=== PATIENT | male | born 1950 | race Caucasian/White ===

== ENCOUNTER → 2019-01-04 12:20 | Outpatient (CLI) | payer OTHER, SELFPAY ==
--- NOTE | 2019-01-04 12:29 | RAD_ITS ---
STUDY: X-RAY - LUMBAR SPINE REASON FOR EXAM: Male, 68 years old. Lower back pain. TECHNIQUE: 5 view(s) of the lumbar spine were obtained. COMPARISON: None FINDINGS: Normal lumbar lordosis. There is no substantial scoliosis. There is a normal alignment of the vertebrae. Normal vertebral bodies and endplates. Normal disc space heights. There is no evidence of acute fracture or loss of vertebral axial height. There is no demonstrated spondylolysis of the pars interarticulares. There are degenerative changes of the facet joints. There is diffusely dilated small bowel loops and colon. Question ileus. Vascular calcifications are seen in the pelvis. There are bilateral hip replacements. RAD/L/S Spine Min 4 Views IMPRESSION: Mild degenerative changes of the lumbar spine without acute abnormality. Electronically Signed: Micha Fontana DO at 20:48 EST Tel [phone], Service support ,
== END ==
PROVIDERS: Family Provider Internal Medicine; PCP Internal Medicine; Visit Provider Internal Medicine
DX: M54.5 Low back pain (principal)
CPT/HCPCS: 72110

== ENCOUNTER 2023-09-22 12:30 | Outpatient (RCR) | payer MEDICARE, OTHER, SELFPAY ==
--- NOTE | 2023-09-08 11:40 | HP.PTEVAL ---
Patient's Visit Information Visit Information Visit Information: ANTHONY CARRASQUILLO is a 73 year old M referred to Physical Therapy by Dr. Clarita Bah DO with a diagnosis of L HS strain. Date of Evaluation: 09/01/23 Physical Therapist: Gene Brandt DPT Visit Plan Frequency: 1x/Week Duration: 6 Weeks Plan: Start with REIL, HS stretching, nerve flossing. Progress as tolerated Subjective Subjective: Pt. is here today for his initial evaluation with L HS strain. Pt. reports having increased symptoms for a few weeks now after walking up a hill to a foot ball game. Pt. reports his pain goes from his posterior thigh to his foot, not always, is fairly consistent. He has been trying some stretching, but not having much relief. He has not had any imaging done at this point in time. Pt. reports some N/T in his leg as well. He has been doing HS stretching which has not helped much. He is hopeful to reduce symptoms in order to get back to all recreational activities and walking without limitations. Pain L posterior leg: Pain Intensity (Out of 10): 3 Pain Intensity Range: 1 and 6 Objective Objective: POSTURE: Pt. has decent posture in stance. Pt. has no lateral shift noted. Pt. has slight FH posture and slight reduced lumbar lordosis. PALPATION: Pt. has some tenderness along L HS. He has some tenderness along lumbar spine, hypomobility noted in same region as well. NEURO: normal sensation and DTR of BLEs. Pt. is able rise on heels and toes without issues. ROM: LUMBAR SPINE: flexion min loss increase NW, extension mod/max loss mild decrease NB, SB min loss NE, rotation min/mod loss bilat NE. Pt. has tight HS bilat, tight hip flexors bilat. Fairly normal hip ROM bilaterally. Movement of his spine caused increase in symptoms. MMT: Pt. has fairly normal LE strength, poor+ core strength. No pain with MMT. GAIT: Fairly normal gait pattern. Pt. did have some increased symptoms with walking. STAIRS: Normal with reciprocal pattern. Special Tests L/S Slump test left side: Positive L/S Slump test right side: Negative L/S Left Straight Leg Raise: Negative L/S Right Straight Leg Raise: Negative Lumbar Standing: Flexion - Mechanical Response: No effect Lumbar Standing: Flexion - Symptoms During Testing: Increases Lumbar Standing: Flexion - Symptoms After Testing: No worse Lumbar Standing: Extension - Mechanical Response: No effect Lumbar Standing: Extension - Symptoms During Testing: Increases Lumbar Standing: Extension - Symptoms After Testing: No worse Lumbar Standing: Right Side Glides - Mechanical Response: No effect Lumbar Standing: Right Side [place] - Symptoms During Testing: No effect Lumbar Standing: Right Side [place] - Symptoms After Testing: No effect Lumbar Standing: Left Side [place] - Mechanical Response: No effect Lumbar Standing: Left Side [place] - Symptoms After Testing: No effect Lumbar Lying: Flexion - Mechanical Response: No effect Lumbar Lying: Flexion - Symptoms During Testing: No effect Lumbar Lying: Flexion - Symptoms After Testing: No effect Lumbar Lying: Extension - Mechanical Response: No effect Lumbar Lying: Extension - Symptoms During Testing: Increases Lumbar Lying: Extension - Symptoms After Testing: No worse L Hip Scour: Negative L Hip NEHEMIAH - Intraarticular Pathology: Negative L Hip FADDIR - Labrum: Negative L Hip Bruno - IT Band: Negative Balance/Special Test Scores Lower Extremity Functional Score: 36 Goals Goal 1:: LTG: Pt. to be I with HEP. Goal Time Frame: 4-6 Weeks Goal 2:: STG: Pt. to have reduced posterior thigh pain to 0-2/10. Goal Time Frame: 2 Weeks Goal 3:: STG: Pt. to have full lumbar and HS ROM without increase in symptoms. Goal Time Frame: 2-4 Weeks Goal 4:: LTG: Pt. to be able to walk unlimited distances without increase in leg or low back symptoms. Goal Time Frame: 4-6 Weeks Rehabilitation Potential Physical Therapy Diagnosis: Pt. has symptoms with distal LLE pain. Pt. has some signs suggesting lumbar radiculopathy with directional preference for extension. Pt. did have some mild reduction in symptoms after extension exercises. I will also work on HS stretching and lumbar mobility. Rehabilitation Potential: Excellent Anticipated Interventions Patient/Client Instruction: Educate patient on: Condition, Plan of Care, Risk Factors and Benefits of Fitness Program For the Purpose of:: To improve decision making, To facilitate caregiver knowledge, To improve self management, To prevent re-injury and To improve ability to perform tasks related to life management Therapeutic Exercise to Include: Strength training, Power training, Passive ROM, Active ROM, Dynamic Lumbar Stabilization and Scapular Strength/Stabilization For the Purpose of:: To decrease pain, To decrease swelling/inflammation, To increase ROM, To increase oxygenation perfusion, To improve gait and locomotor functions, To improve health of tissue, To decrease soft tissue restriction and To increase flexibility/ROM Manual Therapy Techniques to Include: Mobilization, Functional dry needling and Soft tissue mobilization For the Purpose of:: To decrease pain, To decrease swelling/inflammation, To increase ROM, To improve nutrient delivery to tissue, To increase oxygenation perfusion and To improve muscle performance and motor function Text: Thank you for the opportunity to evaluate your patient. For Medicare and Medicare HMO plans, please review the plan of care and approve it. It will need to be FAXED BACK to us at [phone] for Medicare purposes. For Medicare only, by signing this I certify the plan of care. Please let me know if there are questions or concerns regarding this plan of care. Physician Signature: Date:
--- NOTE | 2023-09-27 15:58 | HP.PTDCSUM ---
Discharge Summary D/C summary: It has been my pleasure to treat ANTHONY CARRASQUILLO referred by Dr. Clarita Bah DO, with the diagnosis of L HS strain for a total of 3 visit(s). Discharge Date: 09/22/23 Please see the following information for a summary of their discharge status. Subjective Subjective: Pt. reports overall doing much better since doing his exercises. Pt. reports being 95% better. Pain L posterior leg: Pain Intensity (Out of 10): 0 Overall Improvement % Improvement: 95 Objective Objective/Function: Pt. is overall doing well. He is back to all of his activities with minimal issues. He has occasional HS symptoms, but very mild and infrequently. He is still stiff into extension, but has progressing. He is no longer having his HS symptoms. I want him to continue to work on REIL and the core stability exercises we have gone over. Goals Goal 1:: LTG: Pt. to be I with HEP. Goal Progress: Goal Met Goal 2:: STG: Pt. to have reduced posterior thigh pain to 0-2/10. Goal Progress: Goal Met Goal 3:: STG: Pt. to have full lumbar and HS ROM without increase in symptoms. Goal Progress: Goal Met Goal 4:: LTG: Pt. to be able to walk unlimited distances without increase in leg or low back symptoms. Goal Progress: Goal Met Plan Plan: Pt. to be DC from PT at this point in time. D/C Information Discharge Comments: Pt. is overall doing much better. Pt. was treated with lumbar REIL and core stability exercises. pt. will be DC from PT at this point in time as he is longer having symptoms and is back to all activities without limitations. Pt. is to continue with his HEP to maintain the reduction. pt. consents. d/c sentence: If there are questions or concerns regarding this patient's physical therapy, please feel free to call me at [phone]. Thank you for the referral of this patient. Sincerely, Gene Le Sipos, DPT Balance/Gait/Functional tests Balance/Special Test Scores Lower Extremity Functional Score: 71 Improvement % Improvement: 95
== END 2023-09-22 19:00 | disposition home or self-care (01) ==
LOC: PT 12:30
PROVIDERS: PCP Internal Medicine; Visit Provider Internal Medicine
DX: S76.199 Other specified injury of unspecified quadriceps muscle, fascia and tendon (principal)
CPT/HCPCS: 97110; 97161

== ENCOUNTER → 2024-02-22 | Outpatient (CLI) | payer MEDICARE, OTHER, SELFPAY ==
--- NOTE | 2024-02-22 07:52 | CT_ITS ---
STUDY: LOW DOSE CT LUNG CANCER SCREENING REASON FOR EXAM: Male, 73 years old. Cigar Smoker. Patient smoked half a pack per day for 50 years. RADIATION DOSAGE (If Supplied By Facility): CTDIvol = ( 3.02 ) mGy, DLP = ( 131.34 ) mGycm TECHNIQUE: No contrast was administered. Low dose technique was utilized (average mAS-38 and kVp 120). 1.25 mm axial source images with a slice interval of 1.25-mm were reconstructed in lung windows. 2.5 mm axial source images with a slice interval of 2.5-mm were reconstructed in lung windows. 5.0 mm axial source images with a slice interval of 5.0-mm were reconstructed in soft tissue windows. COMPARISON: None. NODULES: No suspicious nodules are seen. Emphysema: Hyperinflation. Emphysematous changes worse in the upper lobes with the cystic formation. Mild scarring in the superior segment of the right lower lobe. Endobronchial lesion: None Aorta: Atherosclerotic plaque formation of the aortic arch. CORONARY ARTERIES: Coronary artery calcification is seen. Heart: Unremarkable Pulmonary artery: Unremarkable Mediastinal nodes: Small mediastinal lymph nodes. Other chest and abdominal findings: CT/Low Dose CT Lung Screening IMPRESSION: Lung-RADS category 2 - Continue annual screening with LDCT in 12 months. IMPORTANT NOTES FOR USE: ACR Lung-RADS Version 1.1 Assessment Categories Release Date: 2018 Category: Coded 0-4 bases on nodule(s) with highest degree of suspicion. Negative screen is defined as categories 1 and 2; a positive screen is defined as categories 3 and 4. Category 3 and 4A nodules that are unchanged on interval CT should be coded as category 2, and individuals returned to screening in 12 months. Category 4X: Category 3 or 4 nodules with additional imaging findings that increase the suspicion of lung cancer, such as spiculation, GGN that doubles in size in 1 year, enlarged lymph notes, etc. Category Modifiers: S (significant finding unrelated to lung cancer) Electronically Signed: Dex Mckeon MD at 15:26 EDT ,
== END | disposition home or self-care (01) ==
LOC: CT 07:48
PROVIDERS: PCP Internal Medicine; Referring Provider Internal Medicine; Visit Provider Internal Medicine
DX: F17.210 Nicotine dependence, cigarettes, uncomplicated (principal)
CPT/HCPCS: 71271

== ENCOUNTER 2024-09-27 08:26 | Day surgery (SDC) | payer MEDICARE, OTHER, SELFPAY ==
[2024-09-27] VITALS (7 sets, daily range): BP systolic 109–127; BP diastolic 59–80; PULSE 54–65; RESP 14–16; TEMP 36–36.6; O2SAT 57–98; BMI 29.6
== END 2024-09-27 10:59 | disposition home or self-care (01) ==
LOC: EN 08:28 → AC 08:29
PROVIDERS: PCP Internal Medicine; Referring Provider Internal Medicine Gastroenterology; Visit Provider Internal Medicine Gastroenterology
PROC: 0DJD8ZZ Inspection of Lower Intestinal Tract, Via Natural or Artificial Opening Endoscopic (ICD-10-PCS; CPT 45378; principal; 2024-09-27 09:25)
DX: Z12.11 Encounter for screening for malignant neoplasm of colon (principal); K57.30 Diverticulosis of large intestine without perforation or abscess without bleeding; Z87.891 Personal history of nicotine dependence; I25.10 Atherosclerotic heart disease of native coronary artery without angina pectoris; I10 Essential (primary) hypertension; K63.5 Polyp of colon; E78.00 Pure hypercholesterolemia, unspecified; E03.9 Hypothyroidism, unspecified; Z79.899 Other long term (current) drug therapy; Z79.890 Hormone replacement therapy; Z96.649 Presence of unspecified artificial hip joint
CPT/HCPCS: 45385; 45380; 88305; A4216; J2405

== ENCOUNTER → 2025-02-15 | Outpatient (CLI) | payer MEDICARE, OTHER, SELFPAY ==
[2025-02-15 13:12] LABS: PSA,Total - Annual Screen 0.29 ng/mL (0.02-4.00)
== END | disposition home or self-care (01) ==
LOC: LAB 11:57
PROVIDERS: PCP Internal Medicine; Referring Provider Nurse Practitioner; Visit Provider Nurse Practitioner
DX: Z12.5 Encounter for screening for malignant neoplasm of prostate (principal)
CPT/HCPCS: 36415; 84153; G0103

== ENCOUNTER → 2025-03-07 | Outpatient (CLI) | payer MEDICARE, OTHER, SELFPAY ==
--- NOTE | 2025-03-07 14:25 | CT_ITS ---
PROCEDURE: CT ABD/PELVIS W/WO CONTRAST 03/07/2025 REASON FOR EXAM: GROSS HEMATURIA TECHNIQUE: Abdomen and pelvis CT with intravenous contrast. Coronal and Sagittal reconstruction series were provided. PATIENT PREPARATION: Per protocol ORAL CONTRAST TYPE: None. CONTRAST: Isovue-300 VOLUME: 95 mL One or more dose reduction techniques were used (e.g., Automated exposure control, adjustment of the mA and/or kV according to patient size, use of iterative reconstruction technique. RADIATION DOSE SUMMARY: CTDlvol: 26 mGy DLP: 4190.1 mGycm COMPARISON: None FINDINGS: Lung bases: Unremarkable Liver: Tiny subcentimeter cysts are seen in the left lobe of the liver as well as the medial aspect of the right lobe of the liver superiorly. 1 cm cyst is seen in the anterior aspect of the right lobe of the liver anteriorly as well as in the midportion. Gallbladder: Unremarkable Spleen: Normal size. Pancreas: Normal size without evidence of mass surrounding inflammation or ductal dilation. Adrenals: Unremarkable Kidneys: Nonspecific bilateral perinephric stranding. Small left parapelvic renal cysts. No hydronephrosis. Bladder: The bladder is not completely distended. Diffuse bladder wall thickening. Limited evaluation due to the beam hardening artifacts caused by bilateral hip replacements. Central prostatic calcifications. Bowel: Colonic diverticulosis without diverticulitis. Appendix: The appendix is not identified. There is no inflammatory process identified in the right lower quadrant to suggest appendicitis. Lymph nodes: Unremarkable Vasculature: Mild diffuse atherosclerotic calcifications of the abdominal aorta and the major visceral branches are noted. Peritoneum / Retroperitoneum: Unremarkable Bones: Degenerative changes of the spine. Status post bilateral hip replacements. CT/CT Abd/Pelvis W/WO Contrast IMPRESSION: Scattered hepatic cysts. Mild degree of diffuse bladder wall thickening although the bladder is not comp letely distended. Multiple beam hardening artifacts from the bilateral hip replacements causing limited visualization of the pelvic structures. Central prostatic calcification. Sigmoid diverticulosis. Left parapelvic renal cysts. Reading Location: [place] [id number]
== END | disposition home or self-care (01) ==
PROVIDERS: PCP Internal Medicine; Referring Provider Nurse Practitioner; Visit Provider Nurse Practitioner
DX: R31.0 Gross hematuria (principal)
CPT/HCPCS: 74178; Q9967

== ENCOUNTER 2025-03-30 07:02 | Day surgery (SDC) | payer MEDICARE, OTHER, SELFPAY ==
--- NOTE | 2025-03-28 08:43 | EKG12_ITS ---
Test Reason : PREOP Blood Pressure : */* mmHG Vent. Rate : 61 BPM Atrial Rate : 61 BPM P-R Int : 168 ms QRS Dur : 108 ms QT Int : 442 ms P-R-T Axes : 97 84 61 degrees QTcB Int : 444 ms Normal sinus rhythm Junctional ST depression, probably normal Borderline ECG Confirmed by Bruno Hood ([id number]), editor at large DYLAN RIZO ([id number]) on 03/30/2025 12:12:14 PM Referred By: Jaya Pizano Confirmed By: Bruno Hood
[2025-03-28 09:49] LABS: Hematocrit 40.1 % (40-54); Hemoglobin 14.1 g/dL (13.0-16.5); Mean Corp Hgb Conc 35.2 g/dL (32-36); Mean Corpuscular Hgb 32.4 pg (27.0-32.0); Mean Corpuscular Volume 92.2 fL (80-94); Mean Platelet Vol. 9.1 fl (6.2-12.0); Platelet Count 320 K/mm3 (150-450); RBC Distribution Width CV 13.4 % (11.6-14.6); RBC Distribution Width SD 45.8 fl (35.1-43.9); Red Blood Count 4.35 M/mm3 (4.6-6.2); White Blood Count 9.6 K/mm3 (4.4-11.0)
[2025-03-28 10:27] LABS: Anion Gap 9 (5-15); BUN 16 mg/dL (4-19); BUN/Creat Ratio 22.3 RATIO (10-20); Calcium,Total 8.8 mg/dL (7.6-11.0); Carbon Dioxide 25.9 mmol/L (21.0-32.0); Chloride 101 mmol/L (98-108); Creatinine, Serum 0.73 mg/dL (0.70-1.20); EST Glomerular Filtration Rate 97 (>60); Glucose 108 mg/dL (70-99); Sodium Level 135 mmol/L (133-145)
--- NOTE | 2025-03-29 14:28 | PAT.ANESEVAL ---
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 When Was Last Pacemaker Check QUESTION #4 FULL TEXT: You/Your Family Experience fever (hyperthermia) with Anesthesia Last Oral Intake Last Oral intake: Last Oral Intake NPO since Meds taken in AM with sips of water? Meds patient instructed to take am of surgery PONV PONV - phlebotomist medical lab assistant: PONV - phlebotomist medical lab assistant Female No 03/23/25 10:56 HX of Motion Sickness No 03/23/25 10:56 HX of N/V After Surgery No 03/23/25 10:56 Non-Smoker Yes 03/23/25 10:56 Duration of Surgery greater Yes 03/23/25 10:56 than 60 minutes Number of Risk Factors 2 03/23/25 10:56 PONV Score Moderate Risk 03/23/25 10:56 Height & Weight Height & Weight: Anesthesia: Height & Weight Height 6 ft 03/29/25 09:21 Weight: 99.337 kg 03/29/25 09:21 Respiratory Assessment Respiratory Assessment - phlebotomist medical lab assistant: Respiratory Tract Infection Hx - phlebotomist medical lab assistant Hx Respiratory Tract Infection No 03/23/25 10:56 STOP Sleep Apnea STOP Sleep Apnea - phlebotomist medical lab assistant: STOP Sleep Apnea - phlebotomist medical lab assistant Hx Hypertension Yes 03/23/25 10:56 Hx Sleep Apnea No 03/23/25 10:56 CPAP BIPAP Do you snore loudly (louder No 03/23/25 10:56 than talking or can be heard Do you often feel tired/ No 03/23/25 10:56 fatigued/ sleepy during daytime? Has anyone observed you stop No 03/23/25 10:56 breathing during sleep? STOP Results Negative 03/23/25 10:56 QUESTION #5 FULL TEXT : Do you snore loudly (louder than talking or can be heard through closed doors)? 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 Specify any problems Hx of Preganancy in last 3 N/A 03/23/25 10:56 Months Nurse Filling Out Transfusion EHGLADE 03/23/25 10:56 & Questions: Date: 03/23/25 03/23/25 10:56 Time: 11:00 03/23/25 10:56 Patient unable to answer at this time (ie. confused, unrespo /Reproduction History /Reproductive History - phlebotomist medical lab assistant: /Reproductive Hx- phlebotomist medical lab assistant Hx Now Gestational Age (in weeks): EDC: Hx Hx Para Hx Section SAB Active Medications Active Medications: Current Medications Generic Name Dose Route Start Last Admin Trade Name Freq PRN Reason Stop Dose Admin Mitomycin 40 mg/ N/A 40 mls @ 2,400 mls/hr 03/30/25 09:10 INSTILLAT 03/30/25 09:11 X1 ONE Cefazolin Sodium 2 gm/ Sodium 110 mls @ 150 mls/hr 03/30/25 09:10 Chloride IV 03/30/25 09:53 INTRAOP ONE PFSH Medical History (Updated 03/23/25 @ 11:08 by Martina Charles) Bladder disease Prostate disease Dietary restriction Wears partial dentures Wears glasses Alcohol use Marijuana use Thyroid disease Vitiligo High cholesterol Restless legs Back pain Former smoker History of echocardiogram History of stress test Leg cramps Hypertension 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 Hyperlipidemia Essential (primary) hypertension CAD (coronary artery disease) Hypothyroid Home Medications ?Medication ?Instructions ?Recorded ?Last Taken ?Type atorvastatin 80 mg tablet (Lipitor) 80 mg PO QHS 08/11/24 Unknown History cholecalciferol (vitamin D3) 50 50 mcg PO QDAY 08/11/24 Unknown History mcg (2,000 unit) capsule levothyroxine 112 mcg tablet 112 mcg PO QDAY 08/11/24 Unknown History (Synthroid) lisinopril 10 mg tablet 10 mg PO BID 08/11/24 Unknown History Allergy/AdvReac Type Severity Reaction Status Date / Time No Known Allergies Allergy Verified 03/23/25 10:54 Family History (Updated 08/11/24 @ 14:54 by Ca Candelario) Uncle Colon cancer Brother Cancer Surgical History History of cardiac catheterization History of total hip replacement Social History (Updated 08/11/24 @ 14:58 by Ca Candelario) household members: spouse current occupational status: retired current occupation: Retired [employer] Smoking Status: Former smoker alcohol intake: current alcohol intake frequency: 0-2 drinks per day Alcohol type: beer and wine substance use type: does not use Audit: Pertinent Findings Pertinent Findings EKG Perinent findings: 03/28/2025. Normal sinus rhythm. Junctional ST depression, probably normal. Compared to EKG in [address] elevation in anterior leads. Recommendation Anesthesia Recommendation Anesthesia recommendation: OPTIMIZED for anesthesia
[2025-03-30] VITALS (12 sets, daily range): BP systolic 101–145; BP diastolic 50–79; PULSE 74–83; RESP 16–18; TEMP 36.3–37.1; O2SAT 93–100; BMI 28.1
[2025-03-30] MEDS: Lactated Ringers 1,000 ML 15 ML IV (07:51)
--- NOTE | 2025-03-30 08:48 | PCM.HP.STD ---
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 Hyperlipidemia Essential (primary) hypertension CAD (coronary artery disease) Hypothyroid Home Medications ?Medication ?Instructions ?Recorded ?Last Taken ?Type atorvastatin 80 mg tablet (Lipitor) 80 mg PO QHS 08/11/24 Unknown History cholecalciferol (vitamin D3) 50 50 mcg PO QDAY 08/11/24 Unknown History mcg (2,000 unit) capsule levothyroxine 112 mcg tablet 112 mcg PO QDAY 08/11/24 Unknown History (Synthroid) lisinopril 10 mg tablet 10 mg PO BID 08/11/24 03/30/25 06:00 History tamsulosin 0.4 mg capsule 0.4 mg PO QHS 03/30/25 03/29/25 23:00 History Allergy/AdvReac Type Severity Reaction Status Date / Time No Known Allergies Allergy Verified 03/30/25 07:44 Family History (Updated 08/11/24 @ 14:54 by Ca Candelario) Uncle Colon cancer Brother Cancer Surgical History History of cardiac catheterization History of total hip replacement Social History (Updated 08/11/24 @ 14:58 by Ca Candelario) household members: spouse current occupational status: retired current occupation: Retired [email or web address] Smoking Status: Former smoker alcohol intake: current alcohol intake frequency: 0-2 drinks per day Alcohol type: beer and wine substance use type: does not use Vital Signs Vital Signs Vital Signs: 03/30/25 07:46 03/30/25 07:46 Temperature 97.8 F Temperature Source Temporal Pulse Rate 74 Respiratory Rate 18 Respiratory Pattern Normal Blood Pressure 101/79 Blood Pressure Mean 86 Blood Pressure Source Monitor Blood Pressure Position Sitting Blood Pressure Location Left Arm Pulse Ox 100 Oxygen Delivery Method Room Air Weight Weight: 96.8 kg Body Mass Index (BMI) 28.1 Results Lab / Micro Data 03/28/25 09:06 03/28/25 09:06
--- NOTE | 2025-03-30 09:10 | BLA_PTH ---
PATIENT: ANTHONY CARRASQUILLO LOC: [facility] [place] U#:[id number] AGE/SX: 74/M ROOM: RE03/30/[address]: Dr. Jaya Pizano MD : [id number] BED: DIS: 03/30/2025 SPEC #: [id number] RECD: 03/30/25 13:25 STATUS: ANDREW RERadha #: [id number] ALEJANDRO: 03/30/25 09:[address]: Jaya Pizano DEPT: SURGICAL PATHOLOGY RECD BY: Mario Dobson ENTERED: 03/30/25 13:43 SP TYPE: BLADDER BX OTHR DR: Dr. Clarita Bah, DO Tissues: A - Urinary bladder, NOS Procedures: Surgery Specimen Level V HEADER OPERATION: Cysto, transurethral resection bladder tumor PRE-OP DIAGNOSIS: Transurethral resection of bladder tumor TISSUE SUBMITTED: A- Bladder tumor MICROSCOPIC DIAGNOSIS A. Bladder, transurethral resection: * Non-invasive papillary urothelial carcinoma, high grade * Lamina propria is negative for malignancy * Muscularis propria is not identified MICROSCOPIC DESCRIPTION Slides are reviewed. GROSS DESCRIPTION A. Received in formalin in a container labeled with the patient's name, date of , and bladder tumor are multiple black-pink, friable fragments of soft tissue weighing 0.2 g together and measuring 1.1 x 1.0 x 0.4 cm in 1.1 x 1.0 x 0.4 cm in aggregate. Submitted in toto in A1. [facility] 03-30-2025 CPT:88133
[2025-03-30] MEDS: Cefazolin 2 GM in 0.9% Normal Saline (100mL Bag) 100 ML IV (09:30)
--- NOTE | 2025-03-30 09:34 | PCM.PRE.AN2 ---
ASA Classification* ASA Classification ASA Classification: 3 Assessment & Plan Anesthesia* Anesthesia Assessment Anesthesia Assessment: Discussed sedation and/or anesthesia options, risks, benefits, and alternatives with patient/parents/legal guardian/POA. Questions invited. The patient/parents/legal guardian/POA seems to understand and agrees to proceed with anesthesia plan. Reviewed the physical assessment, medical history, allergy history and patient home medications list prior to surgery/procedure/anesthetic and documented any changes. Performed airway and anesthesia risk assessments. Anesthesia Type Anesthesia Type: General History Source History Obtained from:: Patient and - (paralysis requested by surgeon) Anesthesia Focused Assessment* Temperature: 97.8 F Pulse Rate: 74 Blood Pressure: 101/79 Respiratory Rate: 18 Pulse Ox: 100 Airway Assessment Mouth opens: >3 cm Mallampati Score: II Teeth Condition: Loose and Missing Comment: poor dentition, missing chipped cracked teeth Focused Labs Anesthesia Preop lab: CBC WBC 9.6 K/mm3 (4.4-11.0) 03/28/25 09:06 03/28/25 RBC 4.35 M/mm3 (4.6-6.2) L 03/28/25 09:06 03/28/25 Hgb 14.1 g/dL (13.0-16.5) 03/28/25 09:06 03/28/25 Hct 40.1 % (40-54) 03/28/25 09:06 03/28/25 Plt Count 320 K/mm3 (150-450) 03/28/25 09:06 03/28/25 CHEMISTRY Potassium 4.0 mmol/L (3.3-5.1) 03/28/25 09:06 03/28/25 Sodium 135 mmol/L (133-145) 03/28/25 09:06 03/28/25 BUN 16 mg/dL (4-19) 03/28/25 09:06 03/28/25 Creatinine 0.73 mg/dL (0.70-1.20) 03/28/25 09:06 03/28/25 Glucose 108 mg/dL (70-99) H 03/28/25 09:06 03/28/25 TSH 1.810 uIU/mL (0.300-4.200) 03/28/25 09:06 03/28/25 COAG Pre-Assessment Diagnosis/Proposed Procedure Planned Operative Procedure(s): Cysto,Transurethra [facility]ec [facility] Anesthesia History 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 When Was Last Pacemaker Check QUESTION #4 FULL TEXT: You/Your Family Experience fever (hyperthermia) with Anesthesia Last Oral Intake Last Oral intake: Last Oral Intake NPO since 06:00 03/30/25 07:46 Meds taken in AM with sips of Yes 03/30/25 07:46 water? 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 Female No 03/23/25 10:56 HX of Motion Sickness No 03/23/25 10:56 HX of N/V After Surgery No 03/23/25 10:56 Non-Smoker Yes 03/23/25 10:56 Duration of Surgery greater Yes 03/23/25 10:56 than 60 minutes Number of Risk Factors 2 03/23/25 10:56 PONV Score Moderate Risk 03/23/25 10:56 Height & Weight Height & Weight: Anesthesia: Height & Weight Height 6 ft 1 in 03/30/25 07:46 Weight: 96.8 kg 03/30/25 07:46 Body Mass Index (BMI) 28.1 03/30/25 07:46 Respiratory Assessment Respiratory Assessment - 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 Has anyone observed you stop No 03/23/25 10:56 breathing during sleep? STOP Results Negative 03/23/25 10:56 QUESTION #5 FULL TEXT : Do you snore loudly (louder than talking or can be heard through closed doors)? 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 Specify any problems Hx of Preganancy in last 3 N/A 03/23/25 10:56 Months Nurse Filling Out Transfusion [facility] 03/23/25 10:56 & Questions: Date: 03/23/25 03/23/25 10:56 Time: 11:00 03/23/25 10:56 Patient unable to answer at this time (ie. 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 Hx Now Gestational Age (in weeks): EDC: Hx Hx Para Hx Section SAB Active Medications Active Medications: Current Medications Generic Name Dose Route Start Last Admin Trade Name Freq PRN Reason Stop Dose Admin Cefazolin Sodium 2 gm/ Sodium 110 mls @ 150 mls/hr 03/30/25 09:10 Chloride IV 03/30/25 09:53 INTRAOP ONE Lactated Ringer's 1,000 mls @ 15 mls/hr 03/30/25 07:15 03/30/25 07:51 IV 15 mls/hr .Q48H KENN Administration PFSH Medical History (Updated 03/23/25 @ 11:08 by Martina Charles) Bladder disease Prostate disease Dietary restriction Wears partial dentures Wears glasses Alcohol use Marijuana use Thyroid disease Vitiligo High cholesterol Restless legs Back pain Former smoker History of echocardiogram History of stress test Leg cramps Hypertension Osteoarthrosis [place] light [place] disease Hyperlipidemia Essential (primary) hypertension CAD (coronary artery disease) Hypothyroid Home Medications ?Medication ?Instructions ?Recorded ?Last Taken ?Type atorvastatin 80 mg tablet (Lipitor) 80 mg PO QHS 08/11/24 Unknown History cholecalciferol (vitamin D3) 50 50 mcg PO QDAY 08/11/24 Unknown History mcg (2,000 unit) capsule levothyroxine 112 mcg tablet 112 mcg PO QDAY 08/11/24 Unknown History (Synthroid) lisinopril 10 mg tablet 10 mg PO BID 08/11/24 03/30/25 06:00 History tamsulosin 0.4 mg capsule 0.4 mg PO QHS 03/30/25 03/29/25 23:00 History Allergy/AdvReac Type Severity Reaction Status Date / Time No Known Allergies Allergy Verified 03/30/25 07:44 Family History (Updated 08/11/24 @ 14:54 by Ca Candelario) Uncle Colon cancer Brother Cancer Surgical History History of cardiac catheterization History of total hip replacement Social History (Updated 08/11/24 @ 14:58 by Ca Candelario) household members: spouse current occupational status: retired current occupation: Retired [employer] Smoking Status: Former smoker alcohol intake: current alcohol intake frequency: 0-2 drinks per day Alcohol type: beer and wine substance use type: does not use Review of Systems (Anesthesia) ROS Narrative System reviewed and no additional complaints, except as documented.
--- NOTE | 2025-03-30 09:38 | PCM.DC ---
Discharge Instructions Diet Discharge Diet: No restrictions DC O2, CPAP, BIPAP needs Home O2 Discharge instructions: No Dressing / Incision Discharge Activity: Return to Normal Activity and May Not Drive (while taking narcotic pain medications.) Dressing / Incision Call your doctor if you observe: Fever of 101 or Higher Follow Up Care Please Follow Up With: Jaya Pizano MD When: Call [phone] for an appointment Test Results: Test results from this visit will be discussed in further detail at your follow-up appointment, if applicable. Discharge Plan Admission Attending Provider: Jaya Pizano Primary Care Provider: Clarita Bah Instructions Print Language: [place] Discharge Orders/Prescriptions Prescriptions: No Action lisinopril 10 mg tablet 10 mg PO BID levothyroxine [Synthroid] 112 mcg tablet 112 mcg PO QDAY Rx Instructions: Take 1 tablet qd and 2 tablets on Wednesday atorvastatin [Lipitor] 80 mg tablet 80 mg PO QHS cholecalciferol (vitamin D3) 50 mcg (2,000 unit) capsule 50 mcg PO QDAY tamsulosin 0.4 mg capsule 0.4 mg PO QHS Other Ambulatory Orders: 12 Lead EKG (Routine) Timeframe: [id number] Location: None Selected Ordered By: Dr. Louis Lowry Referrals / Follow Up: Clarita Bah DO [Primary Care Provider] - Disposition Disposition (needs filled in before D/C Order can be placed): Home, Self Care
--- NOTE | 2025-03-30 10:00 | OP.PCM_ITS ---
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 Post-Operative Diagnosis: The same Surgery/Procedure Performed: Transurethral resection of bladder tumor instillation of Mitomycin-C director talent acquisition: No Type of Anesthesia: General RN Documented Start/Stop Times: Operation Date: 03/30/25 09:10 Case Time Into Pre-Op 03/30/25 07:19 Anesthesia Start 03/30/25 09:30 Into Room 03/30/25 09:30 Out of Pre-Op 03/30/25 09:30 Procedure Start 03/30/25 09:48 Procedure Start Time: 09:48 Procedure Stop Time: 10:01 Select all DRAINS/GRAFTS/IMPLANTS that apply: Drains Drain details: García catheter with Mitomycin-C Special Medications: Moderate mycins instillation Estimated Blood Loss: Mitomycin- Specimen collected: Yes Description of specimen(s) removed: Bladder tumor Description of surgery: Patient presented to the hospital for treatment of a tumor that was found in the bladder with a very large bladder tumor. Patient understands is possible it may not be able to resect the entire tumor. Patient also understands is possible that the patient may need multiple procedures or more invasive procedures to cure him of this cancer. Patient was taken back to the operating room after smooth induction of anesthesia the patient was placed supine on the table. The patient was placed in dorsolithotomy position. The urethra and genitals prepped and draped in usual sterile fashion. I went into the bladder with a 30 degree lens and a cystoscope was performed and identified the tumor it was occupying mostly the right latera wall of the bladder. I then switched over to the 70 degree lens and inspected the rest of the bladder with a 70 degree lens to make sure there is no other tumors in the bladder and to identify all the tumor locations. The right and left ureteral orifice were identified. The tumor was not involved in ureteral orifices. I then placed the Olympus bipolar resectoscope with a large loop into the bladder. I then started resected the tumor and started superficially shaving small little pieces working my way to the base of the tumor. As I went along I then cauterize any bleeders that were encountered during the resection. The tumor pieces were then flushed out of the bladder and continued resecting the tumor until finally I got down to the base of the tumor and the muscle of the bladder was then identified a small little bit of muscle was taken with the resection. The Ellik was used then to evacuate all the tumor pieces out of the bladder. I then cauterized extensively the tumor base and also circumferentially around where the tumor was. Again we made sure to evacuate all the pieces out the bladder. I made sure there was no more bleeding from the base of the bladder and then over the tumor pieces were then evacuated out and sent off as a specimen. After the resection of the entire tumor was completed then treatment with Mitomycin-C was performed. We then placed the catheter in the bladder and the patient was taken back to the PACU in stable condition. Surgical Findings: Tumor resected from the patient's right lateral wall Complications Complications: No Admit VTE Documentation VTE Present on Admission: No VTE Mechan Device Prophylaxis: SCD's VTE Pharm Prophylaxis ordered?: No
--- NOTE | 2025-03-30 10:14 | PCM.POST.ANE ---
Anesthesia: Postop Eval I Current Vital Signs Temperature: 97.5 F Pulse Rate: 77 Blood Pressure: 130/66 Respiratory Rate: 16 Pulse Ox: 100 Oxygen Delivery Method: Room Air Assessment Airway patent: No Spontaneous unlabored respirations: No Mental status: Awake and Calm nausea: No Vomiting: No Anesthesia Complication: No Fluid Hydration Crystalloid volume administer (ml): 500 Total IV fluid infused: 500 Progress Note Anesthesia document: Postop Eval 1 completed: Yes
--- NOTE | 2025-03-30 10:58 | POSTOPAN2_ITS ---
Anesthesia Postop Eval I Sum Postop Eval Completion status Anesthesia document: Postop Eval 1 completed: Yes Anesthesia Postop Eval I Summary Anesthesia Postop Eval I Summary: Anesthesia Postop Eval I: Assessment Summary Airway patent No 03/30/25 10:15 MEDICAL ASSISTANT FLOAT.TNES Spontaneous unlabored No 03/30/25 10:15 MEDICAL ASSISTANT FLOAT.TNES respirations Mental status Awake,Calm 03/30/25 10:15 MEDICAL ASSISTANT FLOAT.TNES nausea No 03/30/25 10:15 MEDICAL ASSISTANT FLOAT.TNES Vomiting No 03/30/25 10:15 MEDICAL ASSISTANT FLOAT.TNES Anesthesia Postop Eval I: Fluid Summary Crystalloid volume administer 500 03/30/25 10:15 MEDICAL ASSISTANT FLOAT.TNES (ml) Colloids volume administered ( ml) Blood Product volume administered (ml) Total IV fluid infused 500 03/30/25 10:15 MEDICAL ASSISTANT FLOAT.TNES Anesthesia Postop Eval I: Summary Notes Anesthesia Complication No 03/30/25 10:15 MEDICAL ASSISTANT FLOAT.TNES Anesthesia Complication Comment: Post-operative progress note Anesthesia: Postop Eval II Evaluation Mental status: Awake and Calm Pain Level: 3 nausea: No Vomiting: No Complications Anesthesia Complication: No
--- NOTE | 2025-03-30 10:58 | PCM.POSTANE2 ---
Anesthesia Postop Eval I Sum Postop Eval Completion status Anesthesia document: Postop Eval 1 completed: Yes Anesthesia Postop Eval I Summary Anesthesia Postop Eval I Summary: Anesthesia Postop Eval I: Assessment Summary Airway patent No 03/30/25 10:15 SILK SCREEN OPERATOR.TNES Spontaneous unlabored No 03/30/25 10:15 SILK SCREEN OPERATOR.TNES respirations Mental status Awake,Calm 03/30/25 10:15 SILK SCREEN OPERATOR.TNES nausea No 03/30/25 10:15 SILK SCREEN OPERATOR.TNES Vomiting No 03/30/25 10:15 SILK SCREEN OPERATOR.TNES Anesthesia Postop Eval I: Fluid Summary Crystalloid volume administer 500 03/30/25 10:15 SILK SCREEN OPERATOR.TNES (ml) Colloids volume administered ( ml) Blood Product volume administered (ml) Total IV fluid infused 500 03/30/25 10:15 SILK SCREEN OPERATOR.TNES Anesthesia Postop Eval I: Summary Notes Anesthesia Complication No 03/30/25 10:15 SILK SCREEN OPERATOR.TNES Anesthesia Complication Comment: Post-operative progress note Anesthesia: Postop Eval II Evaluation Mental status: Awake and Calm Pain Level: 3 nausea: No Vomiting: No Complications Anesthesia Complication: No
[2025-03-30] MEDS: Ketorolac 15 MG/ML Vial IV (11:59)
== END 2025-03-30 12:20 | disposition home or self-care (01) ==
LOC: SDC 07:03 → AC 07:03
PROVIDERS: Anesthesiology; PCP Internal Medicine; Referring Provider Urology; Visit Provider Urology
PROC: 0T5B8ZZ Destruction of Bladder, Via Natural or Artificial Opening Endoscopic (ICD-10-PCS; CPT 51720; principal; 2025-03-30 09:00)
DX: C67.2 Malignant neoplasm of lateral wall of bladder (principal); I25.10 Atherosclerotic heart disease of native coronary artery without angina pectoris; I10 Essential (primary) hypertension; E78.00 Pure hypercholesterolemia, unspecified; E03.9 Hypothyroidism, unspecified; Z79.890 Hormone replacement therapy; Z79.899 Other long term (current) drug therapy; Z87.891 Personal history of nicotine dependence
CPT/HCPCS: 52235; 00912; 36415; 80048; 84443; 85027; 88305; 88307; 93005; J9280; J2405